=== PATIENT | female | born 1950 | race Caucasian/White ===

== ENCOUNTER 2017-01-23 07:33 | Day surgery (SDC) | payer MEDICARE, OTHER ==
--- NOTE | ~2017-01-23 | EGD ---
EGD REPORT [facility] [address] [place] [address] NAME: JOSE PENA : [birth year] STATUS : REG [facility]#: [id number] AGE: 66 ADM/REG DATE : 01/23/17 MR#: [id number] REPORT SERV DATE: 01/23/17 DICTATED BY: STEVEN ORLANDO DATE: 01/23/17 REPORT STATUS : Draft TRANSCRIBED BY: [facility] DATE: 01/23/17 Pulmonology Patient Name: Jose Pena. Procedure Date: 01/23/2017 10:22 AM Date of : 1950 Attending MD: AGUSTINA ORLANDO MD Procedure Date No Time: 01/23/2017 Procedure: Navigational Bronchoscopy Indications: Left upper lobe nodule, Bilateral infiltrate Providers: AGUSTINA ORLANDO MD Referring MD: SHELL REYES Medicines: Lidocaine 2% 20 mL Complications: No immediate complications Procedure: Pre-Anesthesia Assessment: - ASA Grade Assessment: III - A patient with severe systemic disease. - After reviewing the risks and benefits, the patient was deemed in satisfactory condition to undergo the procedure. - A History and Physical has been performed. Patient meds and allergies have been reviewed. The risks and benefits of the procedure and the sedation options and risks were discussed with the patient. All questions were answered and informed consent was obtained. Patient identification and proposed procedure were verified prior to the procedure by the physician and the nurse in the pre-procedure area in the procedure room. Mental Status Examination: alert and oriented. Airway Examination: normal oropharyngeal airway. Respiratory Examination: poor air movement. CV Examination: normal and RRR, no murmurs, no S3 or S4. ASA Grade Assessment: IV - A patient with severe systemic disease that is a constant threat to life. After reviewing the risks and benefits, the patient was deemed in satisfactory condition to undergo the procedure. The anesthesia plan was to use general anesthesia. Immediately prior to administration of medications, the patient was re-assessed for adequacy to receive sedatives. The heart rate, respiratory rate, oxygen saturations, blood pressure, adequacy of pulmonary ventilation, and response to care were monitored throughout the procedure. The physical status of the patient was re-assessed after the procedure. After obtaining informed consent, the BF [id number] was introduced through the mouth, via the endotracheal tube (the patient was intubated for the procedure) and EGD REPORT [address] [address] NAME: JOSE PENA : [birth year] STATUS : REG [facility]#: [id number] AGE: 66 ADM/REG DATE : 01/23/17 MR#: [id number] REPORT SERV DATE: 01/23/17 DICTATED BY: STEVEN ORLANDO DATE: 01/23/17 REPORT STATUS : Draft TRANSCRIBED BY: [facility] DATE: 01/23/17 advanced to the tracheobronchial tree. The Bronchoscope was introduced through the mouth, via the endotracheal tube (the patient was intubated for the procedure) and advanced to the tracheobronchial tree. The procedure was accomplished without difficulty. The patient tolerated the procedure well. Findings: The endotracheal tube is in good position. The visualized portion of the trachea is of normal caliber. The donald is sharp. The tracheobronchial tree was examined to at least the first subsegmental level. Bronchial mucosa and anatomy are normal; there are no endobronchial lesions, and no secretions. EBUS TBNA of lymph node level 11R x 4 passes for cytology EBUS TBNA of lymph node level 4R x 4 passes for cytology EBUS TBNA of lymph node level 7 x 6 passes for cytology EBUS TBNA of lymph node level 4L x 6 passes for cytology EBUS TBNA of lymph node level 11L x 4 passes for cytology Using SuperDimension Edge catheter 180, peripheral probe EBUS 17s, and fluoroscopy, I performed the following biopsies: NANETTE nodule transbronchial needle aspirates x 4 passes for cytology NANETTE nodule transbronchial brush biopsy x 1 pass for cytology NANETTE nodule transbronchial forcep biopsies x 6 passes for histopathology Bronchoalveolar lavage was performed in the left upper lobe of the lung and sent for cell count, cytology, bacterial culture, viral smears \\T\\ culture, and fungal and AFB analysis. 180 mL of fluid were instilled. 30 mL were returned. The return was blood-tinged and cellular. Impression: Initial Onsite Impression: "No evidence of malignancy" Recommendation: - Await test results. - Chest X-ray. - Follow up in clinic Attending Participation: I personally performed the entire procedure. AGUSTINA ORLANDO MD 01/23/2017 1:30 PM This report has been signed electronically. Number of Addenda: 0 Note Initiated On: 01/23/2017 10:22 AM [id number] [id number]
--- NOTE | ~2017-01-23 | CN ---
Consultation Report [facility] [address] [place]. [address] NAME: JOSE PENA : [birth year] STATUS : REG [facility] PAT#: [id number] AGE: 66 ADM/REG DATE : 01/23/17 MR#: [id number] REPORT SERV DATE: 01/24/17 DICTATED BY: RACHEL ORLANDO DATE: 01/24/17 REPORT STATUS : Draft TRANSCRIBED BY: MODL DATE: 01/24/17 CONSULTATION DATE OF CONSULTATION: 01/23/[address] Can: Thank you for requesting my opinion regarding evaluation and management of the left upper lobe lung nodule and bilateral infiltrates. Ms. Jose Pena is an extremely pleasant 66- year-old female with a significant past medical history of DCIS, status post surgery, radiation, and tamoxifen therapy, who presents after developing an upper respiratory infection and bronchitis. She underwent treatment with antibiotics and steroids and did not have significant improvement. Subsequent CT scan of the chest demonstrated inflammatory changes including mixed nodular interstitial and alveolar infiltrates, however, there was a 1.7 cm spiculated nodule in the left upper lobe highly concerning for potential malignancy. The patient is notably a lifelong nonsmoker. She is feeling better, but she also has a , who is being treated for advanced stage lung cancer and remains concerned. REVIEW OF SYSTEMS: A detailed 14-point review of systems was completed. Pertinent positives and negatives are listed above. ALLERGIES: NO KNOWN DRUG ALLERGIES. HOME MEDICATIONS: Reviewed and located in the paper chart. SOCIAL HISTORY: The patient is a lifelong nonsmoker. She has no history of alcohol or illicit drug abuse. FAMILY HISTORY: Natural deaths. No significant family history. PHYSICAL EXAMINATION: VITAL SIGNS: Vital signs reviewed and located in the paper chart. GENERAL: No acute distress. Able to communicate in full paragraphs at a time. HEENT: Normocephalic and atraumatic. Pupils are equal, round, and reactive to light and accommodation. Posterior oropharynx is clear. NECK: No JVD. No LAD. Trachea midline. CARDIOVASCULAR: Regular rate and rhythm. S1 and S2 present. LUNGS: Clear to auscultation bilaterally. ABDOMEN: Nontender, nondistended, soft. Positive bowel sounds. EXTREMITIES: No clubbing, cyanosis, or edema. SKIN: No new rashes, lesions, or ulcers. PSYCHIATRIC: Alert and oriented x3. Appropriate mood and affect. Appropriate insight and judgment. NEUROLOGIC: 5/5 strength in upper and lower extremities. Cranial nerves 2 through 12 Consultation Report [place] [place] [id number] [place]. [address] NAME: JOSE PENA : [birth year] STATUS : REG [facility] PAT#: [id number] AGE: 66 ADM/REG DATE : 01/23/17 MR#: [id number] REPORT SERV DATE: 01/24/17 DICTATED BY: RACHEL ORLANDO DATE: 01/24/17 REPORT STATUS : Draft TRANSCRIBED BY: MODL DATE: 01/24/17 intact. Gait not tested. DTRs not performed. LABORATORY DATA: CT scan of the chest performed at [facility] [place] on 01/18/2017 was personally reviewed by me and I agree with the following interpretation; 1. 1.7 cm spiculated left upper lobe lung lesion with diffuse bilateral interstitial disease and potential bronchogenic neoplasm. 2. Possible etiology is diffuse pneumonia. 3. Left upper lobe lesion could represent sarcoidosis, neoplasm, and regardless, short- term followup will be required. ASSESSMENT AND PLAN: Ms. Jose Pena is an extremely pleasant 66-year-old female with a significant past medical history of ductal carcinoma in situ in a lifelong nonsmoker, who presents after upper respiratory infection which did not improve after antibiotics, though her symptoms have significantly improved since then. She had a CT scan of the chest on 01/18/2017 that demonstrated a new 1.7 cm spiculated left upper lobe lung lesion. There are also mixed interstitial alveolar densities. This could all represent an inflammatory process. We also discussed a 1.7 cm spiculated lesion, which could represent a potential neoplasm. We did discuss options including PET-CT scan, repeat CT scan of the chest, or proceeding with EBUS and navigation bronchoscopy to better elucidate the underlying findings including mediastinal lymph nodes and the left upper lobe lung lesion. After careful discussion of the risks and benefits of continued observation versus proceeding with biopsy including CT-guided needle biopsy, EBUS, and navigation bronchoscopy, she agreed to proceed forward with EBUS and navigation bronchoscopy. The patient is aware that the procedure is associated with potential life-threatening risks including lung collapse, respiratory failure, and even . RECOMMENDATIONS: A summary of my recommendations are as follows: 1. Proceed with EBUS and navigation bronchoscopy. 2. Follow up in our Pulmonary Clinic. Thank you for allowing me to participate in Ms. Pena' care. NICKOLAS/FERNANDO Rachel Orlando M.D. / [id number] CC: Jolene Young MD
[~2017-01-23 07:33] MED LIST: ASAB PO; GLUCPH PO; HYZAAR 100/25 T1 TAB PO; LOP25 PO; MONODOX100 MG PO; TRILIPIX135 MG PO
[2017-01-23 09:10] LABS: INTERNATIONAL NORMAL RATI 1.1 UNITS (-); PARTIAL THROMBO TIME 26.6 SEC (22.5-37.2); PROTIME (NOT ORD) 13.7 SEC (12.0-14.5)
[2017-01-23 09:11] LABS: BUN (BLOOD UREA NITROGEN) 16 MG/DL (6-23); CALCIUM, SERUM 9.9 MG/DL (8.5-10.4); CHLORIDE, SERUM 104 MMOL/L (96-112); CO2 (CARBON DIOXIDE) 28 MMOL/L (24-34); CREATININE 0.82 MG/DL (0.55-1.02); GFR AFRICAN AMERICAN 86 ML/MIN (>=60); GFR NON AFRICAN AMERICAN 75 ML/MIN (>=60); GLUCOSE, SERUM 163 MG/DL (60-99); POTASSIUM, SERUM 4.3 MMOL/L (3.5-5.3); SODIUM, SERUM 137 MMOL/L (135-148)
[2017-01-23 09:49] LABS: BASOPHILS 0.5 %; BASOPHILS ABSOLUTE 0.05 10/3/uL (0.0-0.16); EOSINOPHILS 3.6 %; EOSINOPHILS ABSOLUTE 0.35 10/3/uL (0.0-0.53); HEMATOCRIT 39.9 % (36.0-48.0); HEMOGLOBIN 13.3 g/dL (12.0-16.0); IMMATURE GRANULOCYTES 0.4 %; IMMATURE GRANULOCYTES ABSOLUTE 0.04 10/3/uL (0.0-0.11); LYMPHOCYTES 28.4 %; LYMPHOCYTES ABSOLUTE 2.74 10/3/uL (0.67-4.30); MEAN CORPUS HGB CONC 33.3 g/dL (32.0-36.0); MEAN CORPUSCULAR VOLUME 87.1 fL (80-100); MEAN PLATELET VOLUME 10.5 fL (9.2-13.0); MONOCYTES 5.8 %; MONOCYTES ABSOLUTE 0.56 10/3/uL (0.21-1.20); NEUTROPHILS 61.3 %; NEUTROPHILS ABSOLUTE 5.92 10/3/uL (2.02-8.40); PLATELET COUNT 404 10/3/uL (150-400); RED CELL COUNT 4.58 10/6/uL (4.0-5.6); WHITE BLOOD CELLS 9.7 10/3/uL (4.5-10.5)
[2017-01-23 09:50] LABS: MANUAL DIFF NO %
[2017-01-23 14:50] LABS: BD FL LYMPH (NOT ORD) 13 %; BD FL SOURCE (NOT ORD) BAL; BF BASO (NOT OF) 0 %; BF LARGE MONONUCLEAR 20 %; BF TOTAL CELL CT (NOT ORD 601 /MM3; BODY FLUID EOS (NOT ORD) 1 %; BODY FLUID RBC (NOT ORD) 9000 /MM3; BODY FLUID SEG (NOT ORD) 66 %
[2017-06-01] MEDS ORDERED: TOPXL25 PO (09:07)
[2017-06-05] MEDS ORDERED: CLARIT10 PO (08:46)
== END 2017-01-23 23:59 | disposition home or self-care (01) ==
LOC: DMU 07:33
PROVIDERS: Anesthesiology; Internal Medicine
PROC: 07B74ZX Excision of Thorax Lymphatic, Percutaneous Endoscopic Approach, Diagnostic (ICD-10-PCS; principal; 2017-01-23 11:30)
PROC: 0BBG8ZX Excision of Left Upper Lung Lobe, Via Natural or Artificial Opening Endoscopic, Diagnostic (ICD-10-PCS; 2017-01-23 11:30)
PROC: 0B9G8ZX Drainage of Left Upper Lung Lobe, Via Natural or Artificial Opening Endoscopic, Diagnostic (ICD-10-PCS; 2017-01-23 11:30)
DX: J98.4 Other disorders of lung (principal); I10 Essential (primary) hypertension; E11.9 Type 2 diabetes mellitus without complications; K21.9 Gastro-esophageal reflux disease without esophagitis; E66.01 Morbid (severe) obesity due to excess calories; Z68.42 Body mass index [BMI] 45.0-49.9, adult; Z87.01 Personal history of pneumonia (recurrent); Z85.3 Personal history of malignant neoplasm of breast; Z79.82 Long term (current) use of aspirin; Z79.84 Long term (current) use of oral hypoglycemic drugs; Z79.899 Other long term (current) drug therapy
CPT/HCPCS: 71010; 80048; 85025; 85610; 85730; 87015; 87070; 87102; 87107; 87116; 87205; 88112; 88172; 88173; 88177; 88305; 88312; 88333; 88341; 88342; 89051; 93005; A9270-GY; C1725; C1769; J2250; J2370; J2405; J2710; J3010